=== PATIENT | male | born 1975 | race Caucasian/White ===

== ENCOUNTER → 2017-03-18 | Outpatient (CLI) | payer OTHER ==
--- NOTE | 2017-03-18 17:46 | DIAGNOSTIC IMAGING REPORT ---
CHEST 2 VIEWS ROUTINE CLINICAL HISTORY: FATIGUE,FEVER,HYPERHIDROSIS,COUGH dyspnea COMPARISON STUDY: 07/23/2009 FINDINGS: The bones soft tissues and hemidiaphragms are normal. The cardiomediastinal silhouette is normal. The lungs are clear. The pulmonary vasculature is normal. IMPRESSION: Negative chest. The above report was generated using voice recognition software. It may contain grammatical, syntax or spelling errors. Electronically signed by: Kunal Franklin M.D. 03/18/2017 5:45 PM Dictated Date/Time: 03/18/2017 5:44 PM
== END | disposition home or self-care (01) ==
LOC: C.RAD 17:24
PROVIDERS: ATTEND Nurse Practitioner
DX: R53.83 Other fatigue (principal); R50.81 Fever presenting with conditions classified elsewhere; R05 Cough; R61 Generalized hyperhidrosis

== ENCOUNTER → 2017-03-24 | Outpatient (CLI) | payer OTHER | END | disposition home or self-care (01) | LOC: C.LAB 16:53 | PROVIDERS: ATTEND Nurse Practitioner | DX: R05 Cough (principal); R53.83 Other fatigue; R50.81 Fever presenting with conditions classified elsewhere; R61 Generalized hyperhidrosis; D72.9 Disorder of white blood cells, unspecified ==

== ENCOUNTER → 2017-03-25 | Outpatient (CLI) | payer OTHER ==
[~2017-03-25] MED LIST: OPTIRAY 320 IV PRN
--- NOTE | 2017-03-25 16:23 | DIAGNOSTIC IMAGING REPORT ---
CT SCAN OF THE CHEST, ABDOMEN, AND PELVIS WITH IV CONTRAST CLINICAL HISTORY: Fever. Cough and fatigue. Hyperhidrosis. COMPARISON STUDY: Chest and abdominal radiographs dated 07/23/2009. TECHNIQUE: Following the IV administration of 115 of Optiray 320, CT scan of the chest, abdomen, and pelvis was performed from the thoracic inlet to the proximal femora. Images are reviewed in the axial, sagittal, and coronal planes. IV contrast was administered without complication. Automated dose control exposure was utilized. A dose lowering technique was utilized adhering to the principles of ALARA. CT DOSE: 2505.16 mGy.cm FINDINGS: CHEST: Thyroid: Imaged portions of the thyroid gland are normal in size and attenuation. Thoracic aorta: The thoracic aorta is normal in caliber and demonstrates standard 3-vessel arch anatomy. No dissection is seen. Pulmonary vasculature: The pulmonary trunk is normal in caliber. There are no filling defects identified in the central pulmonary vessels to indicate pulmonary embolus. Note that this examination was not protocoled for evaluation of the pulmonary arteries. Heart: The heart is normal in size and configuration, and without pericardial effusion. 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 The lungs and pleural spaces are clear. The trachea and central airways are patent. Mediastinum: There is no mediastinal lymphadenopathy. Kennedi: Clear. Axillae: There is no axillary lymphadenopathy. Bony thorax: Mild degenerative change is seen throughout the thoracic spine. No lytic or blastic lesions are identified. ABDOMEN AND PELVIS: Liver: The contrast-enhanced liver is normal in size, contour, and attenuation. There is no intrahepatic or ductal dilatation. The hepatic veins and portal veins are patent. Gallbladder: Surgically absent noting clips in the gallbladder fossa. Spleen: Normal in size and attenuation. Pancreas: Unremarkable. Adrenal glands: Unremarkable. Kidneys: The contrast enhanced kidneys are normal in size and without hydronephrosis. The kidneys enhance symmetrically. There is a 1.8 cm calculus identified in the right renal pelvis on image #224. There is an extra renal pelvis on the right with associated urothelial thickening. At least 2 additional nonobstructing right renal calculi are seen. A 4 mm nonobstructing calculus is seen in the upper pole the left kidney. Abdominal vasculature: The abdominal aorta is normal in course and caliber noting scattered foci of atherosclerotic calcification. Bowel: No bowel obstruction is seen. Colonic interposition is incidentally noted. There is mild colonic diverticulosis without CT evidence of acute diverticulitis. The appendix is well-visualized and normal. Peritoneum: There is no intraperitoneal free air or abdominal ascites. Lymphadenopathy: None. Pelvic viscera: The bladder, prostate, and seminal vesicles are normal as imaged. Skeletal structures: Mild lumbosacral spondylosis is observed. No lytic or blastic lesions are seen. IMPRESSION: 1. There is no acute intrathoracic abnormality. 2. The lungs are clear. 3. There is a 1.8 cm calculus present within the right renal pelvis. There is associated urothelial thickening with mild surrounding inflammation. This is nonspecific and may be related to inflammation or possibly superimposed infection. Correlation with clinical findings and urinalysis will be required. 4. Additional small nonobstructing calculi are seen bilaterally. 5. Moderate colonic diverticulosis without CT evidence of acute diverticulitis. 6. Additional findings as above. Electronically signed by: Murphy Ibanez M.D. 03/25/2017 4:22 PM Dictated Date/Time: 03/25/2017 4:14 PM
== END | disposition home or self-care (01) ==
LOC: C.CTS 15:32
PROVIDERS: ATTEND Nurse Practitioner
DX: R05 Cough (principal); R53.83 Other fatigue; R50.81 Fever presenting with conditions classified elsewhere; R61 Generalized hyperhidrosis; N20.0 Calculus of kidney; K57.90 Diverticulosis of intestine, part unspecified, without perforation or abscess without bleeding

== ENCOUNTER 2017-05-31 10:51 | Observation (INO) | payer OTHER ==
[2017-05-18 10:30] VITALS: BMI 38.0
--- NOTE | 2017-05-18 10:54 | PAT Medication Instructions ---
Service Date May 18, 2017. Current Home Medication List Cefadroxil (Cefadroxil), 500 MG PO QD PRN for rosacea Medication Instructions For Your Scheduled Surgery - Hold the following medications the morning of surgery: Cefadroxil (Cefadroxil), 500 MG PO QD PRN for rosacea If you have any questions please call us at [phone] or [phone] or [phone]
[2017-05-18 12:42] LABS: BASO % 1.1 %; BASO ABS # 0.06 K/uL (0-0.2); EOS % 2.5 %; EOS ABS # 0.13 K/uL (0-0.5); HEMATOCRIT 43.8 % (42-52); HEMOGLOBIN 15.4 g/dL (14.0-18.0); IG# 0.01 K/uL (0.00-0.02); LYMPH % 25.2 %; LYMPH ABS # 1.33 K/uL (1.2-3.4); MEAN CELL VOLUME 90.7 fL (80-100); MEAN CORPUSCULAR HEMOGLOBIN 31.9 pg (25-34); MEAN CORPUSCULAR HGB CONC 35.2 g/dl (32-36); MEAN PLATELET VOLUME 9.7 fL (7.4-10.4); MONO % 9.1 %; MONO ABS # 0.48 K/uL (0.11-0.59); NEUT % 61.9 %; NEUT ABS # 3.26 K/uL (1.4-6.5); PLATELET COUNT 192 K/uL (130-400); RED CELL DISTRIBUTION WIDTH CV 13.9 % (11.5-14.5); RED CELL DISTRIBUTION WIDTH SD 45.6 fL (36.4-46.3); WHITE BLOOD COUNT 5.27 K/uL (4.8-10.8)
[2017-05-18 12:53] LABS: CREATININE 0.98 mg/dl (0.60-1.40)
[2017-05-18 12:54] LABS: CALCIUM 9.4 mg/dl (8.5-10.1); POTASSIUM 4.3 mmol/L (3.5-5.1)
[~2017-05-31] VITALS: Ht 182.9 cm; Wt 126.0 kg
[~2017-05-31 10:51] MED LIST changes: +CEFA500C PO; +CIPROFLOXACIN / D5W 400 MG IV SCH; +LACTATED RINGER'S 1000ML 1,000 ML IV SCH; -OPTIRAY 320 IV PRN
[2017-05-31 11:34] VITALS: BP 136/79; PULSE 59; TEMP 37; O2SAT 98; BMI 38.0
[2017-05-31] MEDS ORDERED: EpHEDrine SULFATE INJ 50 MG/ML AMP IV PRN (11:45)
[2017-05-31] MEDS ORDERED: ONDANSETRON INJ 2 MG/ML 2 ML VIAL IV PRN ×2 (11:45→16:45)
[2017-05-31] MEDS ORDERED: ATROPINE SULFATE 0.1 MG/ML 5ML SYR IV PRN (11:45)
[2017-05-31] MEDS ORDERED: FENTANYL CITRATE INJ 50 MCG/1 ML 2 ML VIAL IV PRN (11:45)
--- NOTE | 2017-05-31 11:51 | History & Physical Bridge Note ---
H&P Re-Evaluation Bridge Note: I have examined the patient, reviewed the History & Physical and in the interval since the performance of the History & Physical I have noted the following changes of clinical significance: No changes noted
[2017-05-31] MEDS ORDERED: OXYC7.5T65 PO (11:56)
[2017-05-31] MEDS ORDERED: CIPR-255 PO (11:56)
[2017-05-31] MEDS ORDERED: PHEN-775 PO (11:56)
--- NOTE | 2017-05-31 11:58 | Discharge Instructions ---
Discharge Instructions Date of Service May 31, 2017. Admission Reason for Admission: Stones Discharge Discharge Diagnosis / Problem: Stone Discharge Goals Goal(s): Decrease discomfort, Improve function Activity Recommendations Activity Limitations: resume your previous activity Lifting Limitations: gradually increase as tolerated Exercise/Sports Limitations: gradually increase as tolerated . Instructions / Follow-Up Instructions / Follow-Up May have blood in urine. May have pain in flank or side. May have discomfort. Call if any fevers or chills. Call if any issues. Current Hospital Diet Patient's current hospital diet: Discharge Diet Recommended Diet: Regular Diet Procedures Procedures Performed: Cystoscopy and Ureteroscopy with Laser lithotripsy on right Pending Studies Studies pending at discharge: no Medical Emergencies . Who to Call and When: Medical Emergencies: If at any time you feel your situation is an emergency, please call 911 immediately. . Non-Emergent Contact Non-Emergency issues call your: Primary Care Provider, Urologist Call Non-Emergent contact if: you have a fever, temperature is above 101, temperature is above 101.5, your pain is not controlled, your pain is worsening , your pain is unusual for you . . "Provider Documentation" section prepared by Nathan Cifuentes. .
[2017-05-31] MEDS ORDERED: PROPOFOL IV EMULSION 10 MG/ML 20 ML VIAL IV ONE (13:23)
[2017-05-31] MEDS ORDERED: LIDOCAINE HCL 2% 2 ML VIAL (20MG/ML) ONE (13:23)
[2017-05-31] MEDS ORDERED: MIDAZOLAM HCL 1 MG/ML 2ML VIAL ONE (13:23)
[2017-05-31] MEDS ORDERED: FENTANYL CITRATE INJ 50 MCG/1 ML 2 ML VIAL ONE ×3 (13:23→14:00)
[2017-05-31] MEDS ORDERED: Cysto-Conray II 17.2% 250ML BOTTLE ONE (13:47)
[2017-05-31] MEDS ORDERED: DEXAMETHASONE SOD INJ 4 MG/ML VIAL ONE (13:49)
[2017-05-31] MEDS ORDERED: ONDANSETRON INJ 2 MG/ML 2 ML VIAL ONE (13:49)
[2017-05-31] MEDS ORDERED: GLYCOPYRROLATE INJ 0.2 MG/ML VIAL ONE (13:52)
--- NOTE | 2017-05-31 14:57 | [facility] Operative Report ---
Operative Report Operative Date May 31, 2017. Pre-Operative Diagnosis Right 1.8 cm Stone Post-Operative Diagnosis Same Procedure(s) Performed Cystoscopy with Right Ureteroscopy, Laser lithotripsy, Stone extraction, and stent placement with retrograde. Surgeon Esau Estimated Blood Loss Minimal Findings Large right stone Specimens Stone Drains 6Fr Multilength. Anesthesia Type General Complication(s) none Disposition Recovery Room / PACU Indications Large right stone. Patient discussed risks and benefits. Description of Procedure Patient was consented and brought back to the operating room. Patient was placed under anesthesia in the supine position and moved to the dorsal lithotomy position. Patient was prepped and draped in the regular sterile fashion. A time out was completed. A 30degree Cystoscope was placed into the bladder and the entire bladder was examined. The UO's were identified. The Right was cannulized with a catheter and a retrograde pyelogram was completed. A wire was then placed. A second wire and an ureteral access sheath was placed. The ureteroscope was taken into the right side and taken to the area of stone. The stone was visualized. Other small stones were appreciated with a total volume of 3.5 cm of stone. The laser was selected and the stone was pulverized to dust and small fragements. Larger fragments were removed and sent for analysis. The scope was slowly removed after the total area was examined. No masses or lesions. The entire ureter was examined as the scope and sheath were removed. With the wire in place, a 6 Fr Multilength Double J stent was placed. It was confirmed with fluoroscopy. With the stent in place, the bladder was emptied. The scope was removed. The patient was cleaned, aroused from anesthesia, and transferred to the pacu in stable condition having tolerated the procedure well with no complications. I was present and participated in all aspects of the procedure. The patient will be monitored in the PACU until transferred. I attest to the content of the Intraoperative Record and any orders documented therein. Any exceptions are noted below.
[2017-05-31 15:53] VITALS: BP 123/75; PULSE 83; TEMP 36.6; O2SAT 98
--- NOTE | 2017-05-31 15:58 | DIAGNOSTIC IMAGING REPORT ---
RETROGRADE INCLUDES KUB CLINICAL HISTORY: RT LITHOTRIPSY AND STENT INSERTION nephrocalcinosis TECHNIQUE: Image intensifier COMPARISON STUDY: None FINDINGS: Image intensifier was utilized for right lithotripsy and stent placement. IMPRESSION: Right ureteral stent positioned with image intensifier guidance. The above report was generated using voice recognition software. It may contain grammatical, syntax or spelling errors. Electronically signed by: Kunal Franklin M.D. 05/31/2017 3:56 PM Dictated Date/Time: 05/31/2017 3:55 PM
[2017-05-31 16:23] VITALS: BP 110/62; PULSE 57; TEMP 36.5; O2SAT 98
[2017-05-31] MEDS ORDERED: SODIUM CHLORIDE 0.9% 1000ML 1,000 ML IV SCH (16:36)
[2017-05-31] MEDS ORDERED: ACETAMINOPHEN 325 MG TAB PO PRN (16:45)
[2017-05-31] MEDS ORDERED: OXYCODONE/ACETAMINOPHEN 5-325 TAB PO PRN (16:45)
--- NOTE | 2017-05-31 16:49 | Anesthesiology Progress Note ---
Anesthesia Post Op Note Date & Time May 31, 2017 at 16:41 Vital Signs Pain Intensity: 0 Vital Signs Past 12 Hours Date Time Temp Pulse Resp B/P (MAP) Pulse Ox O2 Delivery O2 Flow Rate FiO2 05/31/17 15:53 36.6 83 16 123/75 98 Room Air 05/31/17 15:45 36.3 56 18 110/77 97 Room Air 05/31/17 15:35 65 18 130/82 98 Room Air 05/31/17 15:25 62 16 120/75 100 Oxymask 10 05/31/17 15:15 62 16 114/68 100 Oxymask 10 05/31/17 15:07 36.1 84 16 109/78 100 Oxymask 10 05/31/17 11:34 37.0 59 18 136/79 (98) 98 Room Air Notes Mental Status: alert / awake / arousable, participated in evaluation Pt Amnestic to Procedure: Yes Nausea / Vomiting: adequately controlled Pain: adequately controlled Airway Patency, RR, SpO2: stable & adequate BP & HR: stable & adequate Hydration State: stable & adequate Anesthetic Complications: no major complications apparent Pt had cystoscopy, ureteroscopy, laser lithotripsy under GA without problems. Had uneventful stay in PACU and was transported to [facility] in anticipation of discharge. Pt walked to restroom where he had syncopal episode. Compa Rabago was called and pt recovered spontaneously. He is presently awake and stable and reports that he has had vasovagal episodes in the past. Was evaluated by hospitalist who agreed to admit pt to telemetry for observation. .
[2017-05-31] MEDS ORDERED: PHENAZOPYRIDINE HCL 200 MG TAB PO ONE (17:02)
--- NOTE | 2017-05-31 17:08 | History and Physical ---
History & Physical Date & Time of Service: May 31, 2017 at 16:50 Chief Complaint: Stones Primary Care Physician: Peg Norwood CRNP History of Present Illness Source: patient, family, hospital records 41 yo male here for elective cystoscopy, right laser lithotripsy, stent placement and stone extraction. Procedure went well, no complications. Post op he was standing to urinate, had a lot of pain with micturation and there was some blood. He felt light headed and went to pull the RN alert string but then passed out. He was found laying against the wall in the bathroom. He lost consciousness for approximately 60 seconds. When he came to he had no confusion. His HR was in the 40's. Systolic BP was in the 60's. Received a 500cc bolus and his SBP came up to 110's. He denied any head pain. No neurologic deficits on exam. He has a history of syncope, very sensitive to pain, seeing blood. It has been a few years since his last episode. His pre-op EKG showed sinus bradycardia 46. Labs were normal. CXR normal. Had a CT abdomen/pelvis that showed a 1.8 cm stone in the right renal pelvis. Past Medical/Surgical History H/o Syncope GERD, resolved s/p lumbar surgery s/p cholecystectomy Family History Hypertension No h/o prostate cancer or other cancer Social History Smoking Status: Light Tobacco Smoker Smokeless Tobacco Use: No Alcohol Use: none Drug Use: none Housing status: lives with family Immunizations History of Influenza Vaccine: No History of Tetanus Vaccine?: Unknown History of Pneumococcal: Unknown History of Hepatitis B Vaccine: No Allergies Coded Allergies: Penicillins (Verified Allergy, Intermediate, RASH, 05/31/17) Home Medications Scheduled Ciprofloxacin Hcl (Cipro), 500 MG PO BID Phenazopyridine Hcl (Pyridium), 200 MG PO TID Scheduled PRN Cefadroxil (Cefadroxil), 500 MG PO QD PRN for rosacea Oxycodone/Acetaminophen 7.5MG/325MG (Percocet 7.5MG/325MG), 1 TAB PO Q4 PRN for Pain Review of Systems Constitutional: No fever, No chills, No sweats, No weight loss, No weakness, No fatigue, No problem reported Eyes: No worsening of vision, No eye pain, No redness, No discharge, No diplopia, No problem reported ENT: No hearing loss, No unusual epistaxis, No nasal symptoms, No sore throat, No tinnitus, No dental problems, No trouble swallowing, No problem reported Respiratory: No cough, No sputum, No wheezing, No shortness of breath, No dyspnea on exertion, No dyspnea at rest, No hemoptysis, No problem reported Cardiovascular: No chest pain, No orthopnea, No PND, No edema, No claudication , No palpitations, No problem reported Abdomen: + pain, + nausea, No vomiting, No diarrhea, No constipation Musculoskeletal: No joint pain, No muscle pain, No swelling, No calf pain, No problem reported Genitourinary - Male: + hematuria, + dysuria, + urinary hesitancy, No urinary frequency, No urinary urgency, No urinary retention, No urinary incontinence, No penile discharge, No lesions, No impotence Neurologic: No memory loss, No paralysis, No weakness, No numbness/tingling, No vertigo, No balance problems, No problem reported Psychiatric: No depression symptoms, No anhedonism, No anxiety, No insomnia, No substance abuse, No problem reported Endocrine: No fatigue, No excessive thirst, No excessive urination, No problem reported Hematologic / Lymphatic: No abnormal bleeding/bruising, No clotting problems, No swollen lymph nodes, No night sweats, No problem reported Integumentary: No rash, No itch, No new/changing skin lesions, No color change , No bleeding, No problem reported Allergic / Immunologic: No environmental allergies, No seasonal allergies, No pet sensitivities, No food allergies, No hives, No frequent infections, No poor healing, No prolonged convalescence, No problem reported Physical Exam Vital Signs Date Time Temp Pulse Resp B/P (MAP) Pulse Ox O2 Delivery O2 Flow Rate FiO2 05/31/17 16:23 36.5 57 16 110/62 98 Nasal Cannula 2 05/31/17 15:53 36.6 83 16 123/75 98 Room Air 05/31/17 15:45 36.3 56 18 110/77 97 Room Air 05/31/17 15:35 65 18 130/82 98 Room Air 05/31/17 15:25 62 16 120/75 100 Oxymask 10 05/31/17 15:15 62 16 114/68 100 Oxymask 10 05/31/17 15:07 36.1 84 16 109/78 100 Oxymask 10 05/31/17 11:34 37.0 59 18 136/79 (98) 98 Room Air General Appearance: WD/WN, no apparent distress Head: normocephalic, atraumatic Eyes: normal inspection, EOMI, sclerae normal ENT: normal ENT inspection, hearing grossly normal, pharynx normal Neck: supple, no adenopathy, no JVD, trachea midline Respiratory/Chest: chest non-tender, lungs clear, normal breath sounds, no respiratory distress, no accessory muscle use Cardiovascular: regular rate, rhythm, no edema, no gallop, no JVD, no murmur, normal peripheral pulses Abdomen/GI: normal bowel sounds, non tender, soft, no organomegaly Back: normal inspection, no CVA tenderness, no muscle spasm, normal range of motion Extremities/Musculoskelatal: normal inspection, no calf tenderness, normal capillary refill, no pedal edema, normal range of motion, pelvis stable Neurologic/Psych: plant packer II-XII nml as tested, no motor/sensory deficits, alert, normal mood/affect, normal reflexes, oriented x 3 Skin: normal color, warm/dry, no rash Lymphatic: no adenopathy Diagnostics Laboratory Results Results Past 24 Hours Test 05/31/17 16:08 Range/Units Bedside Glucose 97 70-99 mg/dl CXR normal EKG sinus bradycardia Impression Assessment and Plan 41 yo male with resting bradycardia, h/o vasovagal syncope who had a syncopal episode after cystoscopy, occurred with micturation and had some bladder pain, hematuria - Syncope and collapse most likely due to micturation, pain, seeing blood, strong h/o vasovagal syncope had bradycardia and hypotension on initial vitals repeat BP up to 110's systolic will give 1 liter LR at 100cc/hr observe on tele no need for head CT (no head pain, no contusion, no neurologic deficits) no need for echo, no murmurs on exam no chest pain, will check a troponin in the morning, EKG in the AM or as needed for chest pain can likely go home tomorrow AM if feeling well - s/p cystoscopy, right ureteral stent, right laser lithotripsy and stone extraction Cipro 500mg BID x 6 doses, will give IV this evening due to nausea Pyridium PRN follow up with Dr. Arianne Percocet PRN for pain, Morphine if he cannot tolerate PO no DVT prophylaxis: will be here < 24 hours, is ambulatory, young Resuscitation Status VTE Prophylaxis Will order VTE Prophylaxis: No Reason for no VTE drug order: Treatment not indicated Reason no Mechanical VTE Order: Treatment not indicated Additional Copies To Peg Norwood CRNP; Nathan Cifuentes, II., DO
[2017-05-31 17:23] VITALS: BP 128/74; PULSE 58; TEMP 36.5; O2SAT 96; Ht 182.9 cm; Wt 126.0 kg
[2017-05-31] MEDS ORDERED: PHENAZOPYRIDINE HCL 200 MG TAB PO PRN (17:30)
[2017-05-31] MEDS ORDERED: LACTATED RINGER'S 1000ML 1,000 ML IV SCH (17:30)
[2017-05-31 18:00] VITALS: BP 138/72; PULSE 50; TEMP 36.5; O2SAT 96
[2017-05-31] MEDS ORDERED: IV FLUIDS COMPLETED PRN (18:15)
[2017-05-31 20:00] VITALS: BP 114/73; PULSE 43; TEMP 36.8; O2SAT 98
[2017-05-31] MEDS: MoRPHine SULFATE 2 MG/ML CARP IV PRN (20:34)
[2017-05-31] MEDS: CIPROFLOXACIN / D5W 400 MG in PREMIXED IN D5W 200 ML IV SCH (20:38)
[2017-05-31] MEDS: OXYCODONE/ACETAMINOPHEN 7.5-325 TAB PO PRN (23:20)
[2017-06-01 00:01] VITALS: BP 125/79; PULSE 55; TEMP 37.9; O2SAT 96
[2017-06-01 00:16] VITALS: BP 125/79; PULSE 55; TEMP 37.9; O2SAT 96
[2017-06-01] MEDS: MoRPHine SULFATE 2 MG/ML CARP IV PRN (01:58)
[2017-06-01 03:54] VITALS: BP 124/70; PULSE 62; TEMP 37.6; O2SAT 95
[2017-06-01] MEDS: OXYCODONE/ACETAMINOPHEN 7.5-325 TAB PO PRN (04:30)
[2017-06-01 06:42] LABS: BASO % 0.1 %; BASO ABS # 0.01 K/uL (0-0.2); EOS % 0.1 %; EOS ABS # 0.01 K/uL (0-0.5); HEMATOCRIT 39.8 % (42-52); HEMOGLOBIN 13.8 g/dL (14.0-18.0); IG# 0.03 K/uL (0.00-0.02); LYMPH % 5.6 %; LYMPH ABS # 0.68 K/uL (1.2-3.4); MEAN CELL VOLUME 90.5 fL (80-100); MEAN CORPUSCULAR HEMOGLOBIN 31.4 pg (25-34); MEAN CORPUSCULAR HGB CONC 34.7 g/dl (32-36); MEAN PLATELET VOLUME 9.8 fL (7.4-10.4); MONO % 7.8 %; MONO ABS # 0.94 K/uL (0.11-0.59); NEUT % 86.2 %; NEUT ABS # 10.42 K/uL (1.4-6.5); PLATELET COUNT 180 K/uL (130-400); RED CELL DISTRIBUTION WIDTH CV 13.5 % (11.5-14.5); RED CELL DISTRIBUTION WIDTH SD 45.1 fL (36.4-46.3); WHITE BLOOD COUNT 12.09 K/uL (4.8-10.8)
[2017-06-01 07:21] LABS: BLOOD UREA NITROGEN 11 mg/dl (7-18); CALCIUM 8.9 mg/dl (8.5-10.1); CARBON DIOXIDE 26 mmol/L (21-32); CREATININE 1.05 mg/dl (0.60-1.40); GLUCOSE 121 mg/dl (70-99); POTASSIUM 4.2 mmol/L (3.5-5.1); SODIUM 138 mmol/L (136-145)
[2017-06-01 07:48] VITALS: BP 120/70; PULSE 42; TEMP 37.1; O2SAT 97
[2017-06-01] MEDS: CIPROFLOXACIN / D5W 400 MG in PREMIXED IN D5W 200 ML IV SCH (08:17)
--- NOTE | 2017-06-01 09:47 | Cardiology Consultation ---
Cardiology Consultation Date of Consultation: Jun 01, 2017. Requesting Physician: Kymberly Reason for Consultation: syncope Pt evaluation today including: conversation w/ patient, physical exam, chart review, lab review, review of studies, review of inpatient medication list, conversation w/ attending History of Present Illness The patient is a 41-year-old gentle with a longstanding history of syncope who presented for an outpatient urological procedure yesterday. Patient underwent cystoscopy and laser lithotripsy of a renal calculus. In the post anesthesia care unit he ambulated to the bathroom and suffered a syncopal episode. The patient states that he did not have much warning and after the event had little recollection of what had occurred. However, he did notice significant pain with urination and some hematuria. The symptoms had persisted over the course of the evening. He did require narcotic administration to urinate. He also had some symptoms of diaphoresis and feeling clammy with these episodes. Patient has a long history of symptoms associated with needles, doctor's and phlebotomy. When seeing blood or experiencing these other events he commonly will feel diaphoretic and cold. He has had syncope in the situations. Generally he has the prodrome mentioned and recovers quite rapidly afterwards. Patient is an otherwise active individual who is accustomed to routine exercise. He did have what he describes as the flu late last year which reduced his ability to exercise. However, he has returned to the gym and commonly uses the treadmill without limitations such as dyspnea or chest discomfort. He does not report other symptoms associated with activity. He states that he does have some transient dizziness on occasion when standing rapidly. However he has not had syncope in that situation. He has a rare and fleeting palpitation. He does not have symptoms of chest discomfort or dyspnea at rest. He does not describe orthopnea and commonly sleeps on his back due to a prior back surgery. He has not noticed any swelling in his lower extremities Currently the patient is feeling much better. He was able to urinate this morning with much less discomfort. Past Medical/Surgical History Nephrolithiasis Diverticulosis Prior history of morbid obesity Past surgical history Cystoscopy and laser lithotripsy Back surgery Cholecystectomy Family History No premature coronary disease. Social History Smoking Status: Current Every Day Smoker History of Alcohol Use: Yes (2-3 drinks/week) Patient currently employed at [employer]. Lives alone. Review of Systems Prior history of upper respiratory symptoms now resolved. No history of significant flank pain. Did have some lower abdominal discomfort leading up to his cystoscopy. All Other Systems: Reviewed and Negative Allergies Coded Allergies: Penicillins (Verified Allergy, Intermediate, RASH, 05/31/17) Medications Current Inpatient Medications Medications (Trade) Dose Ordered Sig/Mehdi Route Start Time Stop Time Status Last Admin Dose Admin Oxycodone/ Acetaminophen (Percocet 7.5-325MG Tab) 1 tab Q4H PRN PO 05/31/17 12:00 06/14/17 11:59 06/01/17 04:30 1 TAB Acetaminophen (Tylenol Tab) 650 mg Q4H PRN PO 05/31/17 16:45 06/30/17 16:44 Ondansetron HCl (Zofran Inj) 4 mg Q6H PRN IV 05/31/17 16:45 06/30/17 16:44 05/31/17 20:32 4 MG Ciprofloxacin/ Dextrose 400 mg/ Prmx 200 ml @ 100 mls/hr Q12 IV 05/31/17 21:00 06/05/17 20:59 06/01/17 08:17 100 MLS/HR Oxycodone/ Acetaminophen (Percocet 5-325mg Tab) 1 tab Q4H PRN PO 05/31/17 16:45 06/14/17 16:44 05/31/17 18:07 1 TAB Phenazopyridine HCl (Pyridium Tab) 200 mg TID PRN PO 05/31/17 17:30 06/30/17 17:29 06/01/17 08:17 200 MG Morphine Sulfate (MoRPHine SULFATE INJ) 2 mg Q4 PRN IV 05/31/17 17:00 06/14/17 16:59 06/01/17 01:58 2 MG Miscellaneous (Iv Fluids Completed) 1 ea PRN PRN N/A 05/31/17 18:15 05/31/18 18:14 Physical Exam Vital Signs Past 12 Hours Date Time Temp Pulse Resp B/P (MAP) Pulse Ox O2 Delivery O2 Flow Rate FiO2 06/01/17 08:00 Room Air 06/01/17 07:48 37.1 42 16 120/70 (87) 97 Room Air 06/01/17 04:00 Room Air 06/01/17 03:54 37.6 62 16 124/70 (88) 95 Room Air 06/01/17 00:16 37.9 55 18 125/79 (94) 96 06/01/17 00:01 37.9 55 18 125/79 (94) 96 05/31/17 23:59 Room Air The patient is alert and oriented. Mood and affect appeared normal. He answered all questions appropriately. HEENT: Pupils are equal and reactive to light and accommodation. Extraocular movements are intact. The sclerae are anicteric. Neuro: Cranial nerves intact Neck: Patient's neck is supple. He has palpable carotid pulses bilaterally without bruits on auscultation. There is no evidence of jugular venous distention. The thyroid is not enlarged. Lungs: Clear to auscultation bilaterally. He has good air movement without use of accessory muscles. No rales wheezes or rhonchi. Cardiac: Heart demonstrates a regular rate and rhythm. Normal S1 and S2. No murmurs on examination. Pulses: The patient has palpable radial pulses bilaterally that are equal in intensity Extremities: There was no evidence of hypoperfusion. There is no cyanosis or clubbing. There is no edema. Skin: I did not appreciate any rashes on examination today. Data Laboratory Results: Last 24 Hours Test 05/31/17 16:08 06/01/17 06:20 Bedside Glucose 97 mg/dl White Blood Count 12.09 K/uL Red Blood Count 4.40 M/uL Hemoglobin 13.8 g/dL Hematocrit 39.8 % Mean Corpuscular Volume 90.5 fL Mean Corpuscular Hemoglobin 31.4 pg Mean Corpuscular Hemoglobin Concent 34.7 g/dl Platelet Count 180 K/uL Mean Platelet Volume 9.8 fL Neutrophils (%) (Auto) 86.2 % Lymphocytes (%) (Auto) 5.6 % Monocytes (%) (Auto) 7.8 % Eosinophils (%) (Auto) 0.1 % Basophils (%) (Auto) 0.1 % Neutrophils # (Auto) 10.42 K/uL Lymphocytes # (Auto) 0.68 K/uL Monocytes # (Auto) 0.94 K/uL Eosinophils # (Auto) 0.01 K/uL Basophils # (Auto) 0.01 K/uL RDW Standard Deviation 45.1 fL RDW Coefficient of Variation 13.5 % Immature Granulocyte % (Auto) 0.2 % Immature Granulocyte # (Auto) 0.03 K/uL Sodium Level 138 mmol/L Potassium Level 4.2 mmol/L Chloride Level 105 mmol/L Carbon Dioxide Level 26 mmol/L Anion Gap 7.0 mmol/L Blood Urea Nitrogen 11 mg/dl Creatinine 1.05 mg/dl Est Creatinine Clear Calc Drug Dose 125.7 ml/min Estimated GFR () 101.0 Estimated GFR (Non- 87.1 BUN/Creatinine Ratio 10.8 Random Glucose 121 mg/dl Calcium Level 8.9 mg/dl Troponin I < 0.015 ng/ml EKG: EKG demonstrated sinus bradycardia Telemetry reviewed: Sinus bradycardia. No significant arrhythmia Assessment & Plan 1. Syncope: This appears to be reflex syncope. While the patient did not have any notable prodrome leading up to his syncope in the PACU, this was likely due to severe pain. He has a longstanding history of neurocardiogenic syncope in certain situations, specifically health care settings. He otherwise appears to be a healthy individual who was accustomed to exercise without symptoms. Generally he does have a prodrome and has been accustomed to the symptoms and employing abortive maneuvers. He is not appear to have any difficulty with maintaining good hydration and a normal diet. I do not think there is any other required intervention at this point. Standard recommendations including maintaining good hydration, liberalizing salt intake and recognizing symptoms to employ abortive maneuvers were made. 2. Bradycardia: This is a sinus bradycardia. Patient does not have any symptoms at baseline. Again, he appears to have good exercise tolerance and no symptoms chronotropic incompetence. I do not believe this is a clinical issue at this time. In the absence of additional symptoms I would not pursue any testing regarding his sinus bradycardia.
--- NOTE | 2017-06-01 10:11 | Family Medicine Progress Note ---
Progress Note Date of Service Jun 01, 2017. Resident Tracking Resident Involvement: Resident Care Provided Care Provided: Adult Hospital Medicine
--- NOTE | 2017-06-01 10:33 | Progress Note ---
Subjective Date of Service: Jun 01, 2017. Subjective Pt evaluation today including: conversation w/ patient, chart review, lab review Voiding: no voiding problems 41 yo male s/p right URS and stone extraction with Dr. Cifuentes yesterday. Pt admitted after syncopal episode post-op. Pt c/o some dysuria and frequency this morning. + nausea with dysuria, but denies vomiting. Denies gross hematuria. Review of Systems Constitutional: No fever, No chills Respiratory: No shortness of breath Cardiac: No chest pain Abdomen: No pain, No nausea, No vomiting Male : + dysuria, No hematuria Heme: No abnormal bleeding/bruising Objective Vital Signs Date Time Temp Pulse Resp B/P (MAP) Pulse Ox O2 Delivery O2 Flow Rate FiO2 06/01/17 08:00 Room Air 06/01/17 07:48 37.1 42 16 120/70 (87) 97 Room Air 06/01/17 04:00 Room Air 06/01/17 03:54 37.6 62 16 124/70 (88) 95 Room Air 06/01/17 00:16 37.9 55 18 125/79 (94) 96 06/01/17 00:01 37.9 55 18 125/79 (94) 96 05/31/17 23:59 Room Air 05/31/17 20:00 Room Air 05/31/17 20:00 36.8 43 16 114/73 (87) 98 Room Air 05/31/17 18:00 36.5 50 16 138/72 (94) 96 Room Air 05/31/17 17:23 36.5 58 16 128/74 96 Room Air 05/31/17 16:23 36.5 57 16 110/62 98 Nasal Cannula 2 05/31/17 15:53 36.6 83 16 123/75 98 Room Air 05/31/17 15:45 36.3 56 18 110/77 97 Room Air 05/31/17 15:35 65 18 130/82 98 Room Air 05/31/17 15:25 62 16 120/75 100 Oxymask 10 05/31/17 15:15 62 16 114/68 100 Oxymask 10 05/31/17 15:07 36.1 84 16 109/78 100 Oxymask 10 05/31/17 11:34 37.0 59 18 136/79 (98) 98 Room Air Physical Exam General Appearance: no apparent distress Eyes: normal inspection ENT: hearing grossly normal Neck: no JVD Respiratory/Chest: no respiratory distress, no accessory muscle use Cardiovascular: no JVD Extremities: normal inspection Neurologic/Psychiatric: alert, normal mood/affect, oriented x 3 Skin: normal color Laboratory Results Last 24 Hours Test 05/31/17 16:08 06/01/17 06:20 Bedside Glucose 97 mg/dl White Blood Count 12.09 K/uL Red Blood Count 4.40 M/uL Hemoglobin 13.8 g/dL Hematocrit 39.8 % Mean Corpuscular Volume 90.5 fL Mean Corpuscular Hemoglobin 31.4 pg Mean Corpuscular Hemoglobin Concent 34.7 g/dl Platelet Count 180 K/uL Mean Platelet Volume 9.8 fL Neutrophils (%) (Auto) 86.2 % Lymphocytes (%) (Auto) 5.6 % Monocytes (%) (Auto) 7.8 % Eosinophils (%) (Auto) 0.1 % Basophils (%) (Auto) 0.1 % Neutrophils # (Auto) 10.42 K/uL Lymphocytes # (Auto) 0.68 K/uL Monocytes # (Auto) 0.94 K/uL Eosinophils # (Auto) 0.01 K/uL Basophils # (Auto) 0.01 K/uL RDW Standard Deviation 45.1 fL RDW Coefficient of Variation 13.5 % Immature Granulocyte % (Auto) 0.2 % Immature Granulocyte # (Auto) 0.03 K/uL Sodium Level 138 mmol/L Potassium Level 4.2 mmol/L Chloride Level 105 mmol/L Carbon Dioxide Level 26 mmol/L Anion Gap 7.0 mmol/L Blood Urea Nitrogen 11 mg/dl Creatinine 1.05 mg/dl Est Creatinine Clear Calc Drug Dose 125.7 ml/min Estimated GFR () 101.0 Estimated GFR (Non- 87.1 BUN/Creatinine Ratio 10.8 Random Glucose 121 mg/dl Calcium Level 8.9 mg/dl Troponin I < 0.015 ng/ml Assessment and Plan POD #1 s/p right URS and stone extraction Pt noted to be bradycardic this morning. Pulse of 42. Remains on telemetry. Pt OK for d/c home from [facility] when OK with primary service. Scripts and discharge instructions completed yesterday. He will f/u with Dr. Cifuentes as scheduled. No further management at this time. Recall PRN issues.
[2017-06-01] MEDS ORDERED: PHEN-876 PO ×2 (10:39→10:42)
[2017-06-01] MEDS ORDERED: CIPR1TAB10 PO ×2 (10:39→10:42)
[2017-06-01 11:54] VITALS: BP 122/64; PULSE 42; TEMP 36.9; O2SAT 95
--- NOTE | 2017-06-01 12:57 | Anesthesiology Progress Note ---
Anesthesia Post Op Note Date & Time Jun 01, 2017 at 12:57 Vital Signs Pain Intensity: 4.0 Vital Signs Past 12 Hours Date Time Temp Pulse Resp B/P (MAP) Pulse Ox O2 Delivery O2 Flow Rate FiO2 06/01/17 11:54 36.9 42 18 122/64 (83) 95 Room Air 06/01/17 08:00 Room Air 06/01/17 07:48 37.1 42 16 120/70 (87) 97 Room Air 06/01/17 04:00 Room Air 06/01/17 03:54 37.6 62 16 124/70 (88) 95 Room Air Notes Mental Status: alert / awake / arousable, participated in evaluation Pt Amnestic to Procedure: Yes Nausea / Vomiting: adequately controlled Pain: adequately controlled Airway Patency, RR, SpO2: stable & adequate BP & HR: stable & adequate Hydration State: stable & adequate Anesthetic Complications: no major complications apparent
[2017-06-01 13:39] VITALS: BP 122/64; PULSE 42; TEMP 36.9; O2SAT 95
== END 2017-06-01 14:31 | disposition home or self-care (01) ==
LOC: C.ACU 10:51 → C.2E 16:40 → ENRESERV 16:50
PROVIDERS: ADMIT Internal Medicine; ATTEND Family Medicine
DX: N20.0 Calculus of kidney (principal); R55 Syncope and collapse; R00.1 Bradycardia, unspecified; M41.9 Scoliosis, unspecified; K57.30 Diverticulosis of large intestine without perforation or abscess without bleeding; F17.200 Nicotine dependence, unspecified, uncomplicated; K21.9 Gastro-esophageal reflux disease without esophagitis; E66.9 Obesity, unspecified; Z68.38 Body mass index [BMI] 38.0-38.9, adult; Z88.0 Allergy status to penicillin; Z87.19 Personal history of other diseases of the digestive system; Z90.49 Acquired absence of other specified parts of digestive tract; Z82.49 Family history of ischemic heart disease and other diseases of the circulatory system

== ENCOUNTER → 2017-06-22 | Outpatient (CLI) | payer OTHER ==
[~2017-06-22] MED LIST changes: +CIPR1TAB10 PO; -CIPROFLOXACIN / D5W 400 MG IV SCH; -LACTATED RINGER'S 1000ML 1,000 ML IV SCH; +OXYC7.5T65 PO; +PHEN-876 PO; +TAMS0.4C38 PO
== END | disposition home or self-care (01) ==
LOC: C.LABSPEC 10:30
PROVIDERS: ATTEND Urology
DX: N20.0 Calculus of kidney (principal)

== ENCOUNTER → 2017-06-22 | Outpatient (CLI) | payer OTHER ==
--- NOTE | 2017-06-22 14:46 | DIAGNOSTIC IMAGING REPORT ---
EXAMINATION: RENAL ULTRASOUND CLINICAL HISTORY: NEPHROLITHIASIS COMPARISON STUDY: CT scan dated 03/25/2017 FINDINGS: The right kidney measures 12 cm. The left kidney measures 13.7 cm. There is a suspected right-sided nephroureteral stent. There are several equivocal right renal calculi. No left renal calculi are visualized. There is no significant hydronephrosis. No renal masses are visualized A right-sided stent is visualized. Bilateral ureteral jets were delineated. IMPRESSION : 1. Right-sided nephroureteral stent 2. Equivocal right renal calculi 3. No evidence of significant hydronephrosis Electronically signed by: Justice Segura M.D. 06/22/2017 2:44 PM Dictated Date/Time: 06/22/2017 2:42 PM
--- NOTE | 2017-06-22 15:13 | DIAGNOSTIC IMAGING REPORT ---
KUB HISTORY: Follow-up study in a patient with right-sided nephrolithiasis NEPHROLITHIASIS COMPARISON: Renal ultrasound of same day, CT 03/25/2017 FINDINGS: The bowel gas pattern is non-obstructive. Moderate stool volume of the right hemicolon. Cholecystectomy clips partially imaged. There is no organomegaly. Right-sided ureteral stent appears to be in satisfactory positioning. 1.6 cm calculus projects over the region of the interpolar right kidney. No ureteral calculi or left-sided nephrolithiasis identified. Phleboliths of the pelvis are noted. No pneumoperitoneum or pneumatosis. No fracture. IMPRESSION: Right-sided ureteral stent in satisfactory positioning with 1.6 cm calculus in the region of the interpolar right kidney. No ureteral calculi or left-sided nephrolithiasis identified. Electronically signed by: Gildardo Lorenzo M.D. 06/22/2017 3:12 PM Dictated Date/Time: 06/22/2017 3:10 PM
== END | disposition home or self-care (01) ==
LOC: C.ULTR 14:05
PROVIDERS: ATTEND Urology
DX: N20.0 Calculus of kidney (principal); Z96.0 Presence of urogenital implants

== ENCOUNTER → 2017-07-01 | Day surgery (SDC) | payer OTHER ==
[2017-06-24 11:21] VITALS: Ht 182.9 cm; Wt 127.3 kg
[~2017-07-01] VITALS: Ht 182.9 cm; Wt 127.3 kg
[~2017-07-01] MED LIST changes: +ATROPINE SULFATE 0.1 MG/ML 5ML SYR IV PRN; +CEFAZOLIN 3000MG IV PUSH 22.5 ML IV SCH; -CIPR1TAB10 PO; +CIPROFLOXACIN / D5W 400 MG IV SCH; +DEXAMETHASONE SOD INJ 4 MG/ML VIAL ONE; +EpHEDrine SULFATE INJ 50 MG/ML AMP IV PRN; +FENTANYL CITRATE INJ 50 MCG/1 ML 2 ML VIAL IV PRN; +FENTANYL CITRATE INJ 50 MCG/1 ML 2 ML VIAL ONE; +LACTATED RINGER'S 1000ML 1,000 ML IV SCH; +LIDOCAINE HCL 2% 2 ML VIAL (20MG/ML) ONE; +MIDAZOLAM HCL 1 MG/ML 2ML VIAL ONE; +ONDANSETRON INJ 2 MG/ML 2 ML VIAL IV PRN; +ONDANSETRON INJ 2 MG/ML 2 ML VIAL ONE; +OXYCODONE/ACETAMINOPHEN 7.5-325 TAB PO PRN; +PROMETHAZINE HCL INJ 6.25 MG in SODIUM CHLORIDE 0.9% 50ML 50 ML IV PRN; +PROPOFOL IV EMULSION 10 MG/ML 20 ML VIAL IV ONE
--- NOTE | 2017-07-01 09:57 | Discharge Instructions ---
Discharge Instructions Date of Service Jul 01, 2017. Admission Reason for Admission: Stones Discharge Discharge Diagnosis / Problem: Right Stone Discharge Goals Goal(s): Decrease discomfort, Improve function Activity Recommendations Activity Limitations: resume your previous activity Lifting Limitations: gradually increase as tolerated Exercise/Sports Limitations: gradually increase as tolerated . Instructions / Follow-Up Instructions / Follow-Up May have flank pain. May have discomfort. Call if any fevers or chills. May have blood in urine. Current Hospital Diet Patient's current hospital diet: Discharge Diet Recommended Diet: Regular Diet Procedures Procedures Performed: R ESWL Pending Studies Studies pending at discharge: no Medical Emergencies . Who to Call and When: Medical Emergencies: If at any time you feel your situation is an emergency, please call 911 immediately. . Non-Emergent Contact Non-Emergency issues call your: Primary Care Provider, Urologist Call Non-Emergent contact if: you have a fever, temperature is above 101, temperature is above 101.5, your pain is not controlled, your pain is worsening . . "Provider Documentation" section prepared by Nathan Cifuentes. .
--- NOTE | 2017-07-01 12:13 | [facility] Operative Report ---
Operative Report Operative Date Jul 01, 2017. Pre-Operative Diagnosis Right Renal Staghorn Stone Post-Operative Diagnosis Same Procedure(s) Performed R ESWL Surgeon Esau Estimated Blood Loss None Findings Large Right Renal Stone Anesthesia Type General Complication(s) none Disposition Recovery Room / PACU Indications Large right stone burden after ureteroscopy. Risks and benefits discussed. Stent in place. Description of Procedure Patient was consented and brought back to the operating room. Patient was placed under anesthesia in the supine position. Patient was prepped and draped in the regular sterile fashion. A time out was completed. With the time out completed, The patient was assessed with fluoroscopy. The stone was identified and position was triangulated. At this point, the shock waves commenced. The stone was monitored throughout the process with fluoroscopy to assess progression and maintain position. The stone was pulverized with 2500 shocks at a maximum voltage of 5 with a total fluoroscopic time of 2:37. With the stone treated, the procedure ended. The patient was cleaned, aroused from anesthesia, and transferred to the pacu in stable condition having tolerated the procedure well with no complications. I was present and participated in all aspects of the procedure. The patient will be monitored in the PACU until transferred. I attest to the content of the Intraoperative Record and any orders documented therein. Any exceptions are noted below.
[2017-07-01 12:42] VITALS: TEMP 36.8
--- NOTE | 2017-07-01 12:42 | Anesthesiology Progress Note ---
Anesthesia Post Op Note Date & Time Jul 01, 2017 at 12:42 Vital Signs Pain Intensity: 0 Vital Signs Past 12 Hours Date Time Temp Pulse Resp B/P (MAP) Pulse Ox O2 Delivery O2 Flow Rate FiO2 07/01/17 12:36 133/81 07/01/17 12:33 59 12 07/01/17 12:33 62 12 96 07/01/17 12:31 134/76 07/01/17 12:29 36.8 97 Room Air 07/01/17 12:28 68 12 07/01/17 12:28 66 12 97 07/01/17 12:27 69 114 07/01/17 12:27 67 114 97 07/01/17 12:26 141/83 07/01/17 12:22 60 0 99 07/01/17 12:22 60 0 07/01/17 12:21 124/79 07/01/17 12:20 61 0 07/01/17 12:20 60 0 99 07/01/17 12:16 113/89 07/01/17 12:15 36.8 63 12 113/89 100 Mask 8 07/01/17 09:41 36.8 75 20 151/84 (106) 97 Room Air Notes Mental Status: alert / awake / arousable, participated in evaluation Pt Amnestic to Procedure: Yes Nausea / Vomiting: adequately controlled Pain: adequately controlled Airway Patency, RR, SpO2: stable & adequate BP & HR: stable & adequate Hydration State: stable & adequate Anesthetic Complications: no major complications apparent
[2017-07-01 13:11] VITALS: BP 117/76; PULSE 54; O2SAT 97
--- NOTE | 2017-07-01 13:22 | Anesthesiology Progress Note ---
Anesthesia Post Op Note Date & Time Jul 01, 2017 at 13:22 Vital Signs Pain Intensity: 0 Vital Signs Past 12 Hours Date Time Temp Pulse Resp B/P (MAP) Pulse Ox O2 Delivery O2 Flow Rate FiO2 07/01/17 13:11 54 18 117/76 (90) 97 Room Air 07/01/17 12:42 36.8 63 18 126/84 (98) 97 Room Air 07/01/17 12:36 133/81 07/01/17 12:33 59 12 07/01/17 12:33 62 12 96 07/01/17 12:31 134/76 07/01/17 12:29 36.8 97 Room Air 07/01/17 12:28 68 12 07/01/17 12:28 66 12 97 07/01/17 12:27 69 114 07/01/17 12:27 67 114 97 07/01/17 12:26 141/83 07/01/17 12:22 60 0 99 07/01/17 12:22 60 0 07/01/17 12:21 124/79 07/01/17 12:20 61 0 07/01/17 12:20 60 0 99 07/01/17 12:16 113/89 07/01/17 12:15 36.8 63 12 113/89 100 Mask 8 07/01/17 09:41 36.8 75 20 151/84 (106) 97 Room Air Notes Mental Status: alert / awake / arousable, participated in evaluation Pt Amnestic to Procedure: Yes Nausea / Vomiting: adequately controlled Pain: adequately controlled Airway Patency, RR, SpO2: stable & adequate BP & HR: stable & adequate Hydration State: stable & adequate Anesthetic Complications: no major complications apparent
== END | disposition home or self-care (01) ==
LOC: X.SURG 09:29
PROVIDERS: ATTEND Urology
DX: N20.0 Calculus of kidney (principal); F17.200 Nicotine dependence, unspecified, uncomplicated; Z88.0 Allergy status to penicillin

== ENCOUNTER → 2017-07-12 | Outpatient (CLI) | payer OTHER ==
[~2017-07-12] MED LIST changes: -ATROPINE SULFATE 0.1 MG/ML 5ML SYR IV PRN; -CEFAZOLIN 3000MG IV PUSH 22.5 ML IV SCH; -CIPROFLOXACIN / D5W 400 MG IV SCH; -DEXAMETHASONE SOD INJ 4 MG/ML VIAL ONE; -EpHEDrine SULFATE INJ 50 MG/ML AMP IV PRN; -FENTANYL CITRATE INJ 50 MCG/1 ML 2 ML VIAL IV PRN; -FENTANYL CITRATE INJ 50 MCG/1 ML 2 ML VIAL ONE; -LACTATED RINGER'S 1000ML 1,000 ML IV SCH; -LIDOCAINE HCL 2% 2 ML VIAL (20MG/ML) ONE; -MIDAZOLAM HCL 1 MG/ML 2ML VIAL ONE; -ONDANSETRON INJ 2 MG/ML 2 ML VIAL IV PRN; -ONDANSETRON INJ 2 MG/ML 2 ML VIAL ONE; -OXYCODONE/ACETAMINOPHEN 7.5-325 TAB PO PRN; -PROMETHAZINE HCL INJ 6.25 MG in SODIUM CHLORIDE 0.9% 50ML 50 ML IV PRN; -PROPOFOL IV EMULSION 10 MG/ML 20 ML VIAL IV ONE
--- NOTE | 2017-07-12 18:21 | DIAGNOSTIC IMAGING REPORT ---
KUB CLINICAL HISTORY: N20.0 nephrolithiasis COMPARISON STUDY: 06/22/2017 FINDINGS: r there is a 25 mm lower pole right renal staghorn calculus. Additional tiny calculi are visualized within the midpole the right kidney. There is a right-sided nephroureteral stent. No calcifications are visualized along the course of the stent. There are no visible left renal calculi. There is no pathologic bowel dilatation. There are surgical clips within the right upper quadrant consistent with a prior cholecystectomy. IMPRESSION: 1. Right-sided nephrolithiasis 2. No change in the orientation of the right-sided nephroureteral stent Electronically signed by: Justice Segura M.D. 07/12/2017 6:20 PM Dictated Date/Time: 07/12/2017 6:19 PM
== END | disposition home or self-care (01) ==
LOC: C.RAD 18:02
PROVIDERS: ATTEND Urology
DX: N20.0 Calculus of kidney (principal)